=== PATIENT | male | born 2000 | race Caucasian/White ===

== ENCOUNTER 2021-06-14 17:45 | Emergency (ER) | payer OTHER, SELFPAY ==
[2021-06-14 19:54] VITALS: BP 116/62; PULSE 70; RESP 16; TEMP 37.1; O2SAT 97; BMI 26.6
--- NOTE | 2021-06-14 20:41 | ED_ITS ---
HPI - General Adult General Chief complaint: Skin/Abscess/Foreign Body Stated complaint: cyst? Source: patient Mode of arrival: ambulatory Limitations: no limitations History of Present Illness HPI narrative: Patient presents to ED for tender mass on left buttock for 4 days. Patient denies any trauma, fever, chills, nausea or vomiting. Related Data Previous Rx's Medication Instructions Recorded cephalexin 500 mg capsule 500 mg PO QID #28 cap 06/14/21 doxycycline hyclate 100 mg capsule 100 mg PO BID 7 Days #14 cap 06/14/21 naproxen 500 mg tablet 500 mg PO BID PRN #28 tab 06/14/21 Allergies Allergy/AdvReac Type Severity Reaction Status Date / Time No Known Allergies Allergy Verified 06/14/21 19:54 [No Known Allergies*] Review of Systems Review of Systems: Yes all other systems are reviewed and are negative Constitutional: Constitutional: Reports as per HPI and Reports no additional constitutional complaints Eyes: Eyes: Reports as per HPI and Reports no additional eye complaints ENT: Reports system reviewed and no additional complaints, except as documented and Reports as per HPI Cardiovascular: Cardiovascular: Reports as per HPI and Reports no additional cardiovascular complaints Respiratory: Respiratory: Reports as per HPI and Reports no additional respiratory complaints Gastrointestinal: Gastrointestinal: Reports as per HPI and Reports no additional gastrointestinal complaints Genitourinary: Genitourinary: Reports no additional male genitourinary com plaints and Reports as per HPI Integumentary/Breasts: Skin/Breast: Reports system reviewed and no additional complaints, except as docu and Reports as per HPI Comments: Left buttock tender mass Neurologic: Reports system reviewed and no additional complaints, except as documented and Reports as per HPI Psychiatric: Psychiatric: Reports no additional psychiatric complaints and Reports as per HPI [facility] Past Medical History Medical History (Updated 06/14/21 @ 20:46 by RAKEL Cervantes) No known health problems Social History Social History Advance Directives: No Advance Directives Information Provided: No Physical Exam Vital Signs: Vital Signs: Last Vital Signs Temp 98.8 F 06/14/21 19:54 Pulse 70 06/14/21 19:54 Resp 16 06/14/21 19:54 BP 116/62 06/14/21 19:54 Pulse Ox 97 06/14/21 19:54 Body Mass Index 26.6 Const: General: cooperative, healthy appearing, comfortable, no acute dist ress, well developed, alert, awake and Physically active Orientation/consciousness: patient oriented x3 HENMT: Head: Yes normal to inspection, Yes No palpable skull fracture present, Yes normocephalic and Yes atraumatic Eyes: General: appearance normal, both eyes and all related structures Neck: Neck: Yes normal visual inspection, Yes full ROM, Yes no lymphadenopathy, Yes no meningeal signs, Yes trachea midline, Yes supple and No tender Chest: Chest palpation & inspection: normal inspection of the chest and normal palpation of entire chest wall Resp: Effort & Inspection: normal respiratory effort and able to speak in complete sentences Auscultation: clear to auscultation bilaterally Cardio: Jugular venous distension: no JVD Heart sounds: S1 normal heart sound present and S2 normal heart sound present GI: Inspection: Yes normal to inspection and No abdominal wall ecchymosis Palpation (GI): Soft to palpation, not firm, nontender, no guarding and not rigid : General: No CVA tenderness and Yes no CVA tenderness Back/Spine/Pelvis: Back: no CVA tenderness, No CVA tenderness and No back tenderness Skin: Other: left buttock mass that is tender, erythamouts, and non- fluctulant. Negative for rectal mass/abscess. Neuro: General: patient oriented x3, gait normal, no meningeal signs and CN's II-XI intact bilaterally Cranial nerves: Yes CN's II-XII intact bilaterally Extrem: General: Yes normal to inspection and Yes full ROM Psych: Appearance: grossly normal, well kempt and not disheveled Course Course Course Narrative: Bedside ultrasound shows more cobblestone cellulitis appearing. With syringe placed into mass and negative for any pus drainage. Reevaluation(s) Reevaluation #1: Patient will be discharged with antibiotics. Patient recommended warm compress 4 times a day for 15 minutes from the area. Time: 20:45 Medical Decision Making MDM Narrative Medical decision making narrative: Cellulitis/abscess my ready to be drained Discharge Plan Discharge Clinical Impression: Cellulitis, Abscess of skin or subcutaneous tissue Patient Disposition: Home, Self-Care Instructions: Cellulitis (ED), Abscess (ED) Additional Instructions: You have cellulitis which is a skin infection and early abscess not yet ready to be drained. Recommend warm compress 4 times a day for 15 minutes and left buttock area. Return to the ED for worsening pain, increase in size, drainage, fever, chills, rectal pain, or any other concerning symptoms. Please follow up with PCP. Return to the ED in 4 days for re-evaluation if no improvement. Prescriptions: New cephalexin 500 mg capsule 500 mg PO QID Qty: 28 RF: 0 doxycycline hyclate 100 mg capsule 100 mg PO BID 7 Days Qty: 14 RF: 0 naproxen 500 mg tablet 500 mg PO BID PRN (Reason: pain) Qty: 28 RF: 0 Print Language: Hungarian
== END 2021-06-14 21:36 | disposition home or self-care (01) ==
PROVIDERS: Emergency Provider Internal Medicine
DX: L03.317 Cellulitis of buttock (principal); Z79.899 Other long term (current) drug therapy
CPT/HCPCS: 99283